=== PATIENT | female | born 2000 | race African-American/Black ===

== ENCOUNTER 2021-06-29 03:24 | Inpatient (IN) | payer SELFPAY ==
[2021-06-29] MEDS ORDERED: Methylergonovine 0.2 MG/1 ML Amp IM PRN (03:44)
[2021-06-29] MEDS ORDERED: Water For Irrigation,Sterile 1,000 ML Container IRR PRN (03:44)
[2021-06-29] MEDS ORDERED: Sodium Chloride 0.9% 10 ML Syringe FLUSH PRN (03:44)
[2021-06-29] MEDS ORDERED: Ondansetron 4 MG/2 ML SDV IVPUSH PRN (03:44)
[2021-06-29] MEDS ORDERED: Sodium Chloride 0.9% 2.5 ML Syringe FLUSH PRN (03:44)
[2021-06-29] MEDS ORDERED: Tranexamic Acid 1,000 MG in Sodium Chloride 0.9% 100 ML IV PRN (03:44)
[2021-06-29] MEDS ORDERED: Misoprostol 200 MCG Tab PO PRN (03:44)
[2021-06-29] MEDS ORDERED: Carboprost Tromethamine 250 MCG/1 ML Amp IM PRN (03:44)
[2021-06-29] MEDS ORDERED: Butorphanol 1 MG/ML SDV IVPUSH PRN (03:44)
[2021-06-29] MEDS ORDERED: Sodium Chloride 0.9% 20 ML SDV IV PRN (03:44)
[2021-06-29] MEDS ORDERED: Lidocaine 1% 50 ML MDV INJECT PRN (03:44)
[2021-06-29] MEDS ORDERED: Oxytocin/0.9 % Sodium Chloride 30 UNIT/500 ML BAG IV SCH (03:45)
[2021-06-29] MEDS: Lactated Ringers 1,000 ML IV SCH ×2 (04:05→04:42)
[2021-06-29] MEDS ORDERED: Ropivacaine 100 ML ONE (04:36)
[2021-06-29] MEDS ORDERED: ePHEDrine 50 MG/ML SDV IVPUSH PRN ×2 (04:49)
[2021-06-29] MEDS ORDERED: Ropivacaine 200 MG in Premix Bag 1 BAG EPIDUR SCH (05:00)
[2021-06-29] MEDS ORDERED: Acetaminophen 500 MG Tab PO PRN ×2 (05:35)
[2021-06-29] MEDS ORDERED: Witch Hazel Medicated Pads 40/Jar TOP PRN (05:35)
[2021-06-29] MEDS ORDERED: Lanolin 100% Cream 7 GM Tube TOP PRN (05:35)
[2021-06-29] MEDS ORDERED: Ibuprofen 400 MG Tab PO PRN (05:35)
[2021-06-29] MEDS ORDERED: Bisacodyl 10 MG Supp RECTAL PRN (05:35)
[2021-06-29] MEDS ORDERED: Docusate Sodium 100 MG Cap PO PRN (05:35)
[2021-06-29] MEDS ORDERED: Benzocaine/Menthol 20%-0.5% Spray 78 GM Cannister TOP PRN (05:35)
[2021-06-29] MEDS ORDERED: oxyCODONE 5 MG Tab PO PRN (05:35)
[2021-06-29] MEDS: Ibuprofen 800 MG Tab PO PRN (16:33)
[2021-06-30] MEDS: Ibuprofen 800 MG Tab PO PRN ×2 (05:41→17:52)
== END 2021-07-01 12:10 | disposition home or self-care (01) | DRG 807 ==
LOC: MW.OB 03:24 → OBSVTOIN 05:42 → MW.OB 10:39
PROVIDERS: ADMIT Obstetrics & Gynecology; ATTEND Obstetrics & Gynecology
PROC: 10E0XZZ Delivery of Products of Conception, External Approach (ICD-10-PCS; principal; 2021-06-29)
PROC: 3E0R3BZ Introduction of Anesthetic Agent into Spinal Canal, Percutaneous Approach (ICD-10-PCS; 2021-06-29)
PROC: 00HU33Z Insertion of Infusion Device into Spinal Canal, Percutaneous Approach (ICD-10-PCS; 2021-06-29)
DX: O80 Encounter for full-term uncomplicated delivery (principal); Z37.0 Single live birth; Z3A.39 39 weeks gestation of pregnancy; Z20.822 Contact with and (suspected) exposure to COVID-19
CPT/HCPCS: 36415; 51701; 59025; 59409; 80305-QW; 84112; 85014; 85018; 85027; 86592; 86850; 86900; 86901; 87653; A9270-GY; J2590; J2795; J7120; U0002